=== PATIENT | female | born 1945 | race Caucasian/White ===

== ENCOUNTER 2019-06-24 12:47 | Outpatient (CLI) | payer MEDICARE, OTHER ==
--- NOTE | 2019-06-24 13:27 | DEXA Report ---
Reason: SCR FOR OSTEOPOROSIS, POSTMENOPAUSAL Procedure Date: 06/24/2019 Accession Number: [id number] / [id number] Procedure: DEX - Dexa Spine and/or Hip CPT Code: FULL RESULT: EXAM: Dexa Spine and/or Hip DATE: 06/24/2019 1:07 PM CLINICAL HISTORY: POSTMENOPAUSAL TECHNIQUE: Dual energy x-ray absorptiometry (DXA) was performed on a [employer] System. Regions measured are the AP Spine, femoral neck, and if needed forearm. COMPARISON: None. In accordance with the International Society for Clinical Densitometry (ISCD) guidelines, data from previous exams may be reanalyzed using current recommendations and techniques. This is done to allow a more accurate basis for comparison with the current study. FINDINGS: The data for the lumbar spine is as follows: BMD (g/cm/cm) T-SCORE Z-SCORE REGION L1 0.862 -2.2 -0.3 L2 0.852 -2.9 -1.0 L3 0.793 -3.4 -1.5 L4 0.816 -3.2 -1.3 TOTAL 0.828 -2.9 -1.0 NOTE: All evaluable vertebrae are used for classification The data for the hip is as follows: BMD (g/cm/cm) T-SCORE Z-SCORE REGION Neck 0.703 -2.4 -0.4 TOTAL 0.727 -2.2 -0.4 NOTE: The femoral neck or total proximal femur, whichever is lowest, is used for classification. IMPRESSION: THE WHO CLASSIFICATION BASED ON THE INTERNATIONAL REFERENCE STANDARD IS OSTEOPOROSIS, REFERENCE LUMBAR SPINE.. THE FRACTURE RISK IS HIGH. RECOMMENDATION: Patients with diagnosis of osteoporosis or osteopenia should have regular bone mineral density assessment. For those eligible for Medicare, routine testing is allowed once every 2 years. Testing frequency can be increased for patients who have rapidly progressing disease or for those who are receiving medical therapy to restore bone mass. COMMENT: World Health Organization (WHO) definitions for osteoporosis and osteopenia: NORMAL BMD: T-score at -1.0 or higher, fracture risk is low OSTEOPENIA BMD: T-score between -1.0 and -2.5, fracture risk is increased. OSTEOPOROSIS BMD: T-score at -2.5 or lower, fracture risk is high. National Osteoporosis Foundation recommends: 1. Obtain adequate dietary calcium (at least 1200 mg per day) and vitamin D (400-800 international units per day). 2. Participate, as appropriate, in regular weightbearing and muscle-strengthening exercise. 3. Avoid tobacco use and reduce alcohol and caffeine intake. 4. For more detailed information see the website at www.NOF.org.
== END 2019-06-24 12:48 | disposition home or self-care (01) ==
LOC: DI 12:47
PROVIDERS: ATTEND Family Medicine
DX: Z13.820 Encounter for screening for osteoporosis (principal); M81.0 Age-related osteoporosis without current pathological fracture; Z78.0 Asymptomatic menopausal state
CPT/HCPCS: 77080

== ENCOUNTER 2019-12-30 18:29 | Outpatient (CLI) | payer MEDICARE, OTHER | END 2019-12-30 18:30 | disposition home or self-care (01) | LOC: COV 18:29 | PROVIDERS: ATTEND Family Medicine | DX: R05 Cough (principal); M79.10 Myalgia, unspecified site; R53.83 Other fatigue; R68.83 Chills (without fever); J02.9 Acute pharyngitis, unspecified | CPT/HCPCS: 81599 ==

== ENCOUNTER 2020-12-05 08:00 | Outpatient (CLI) | payer MEDICARE, OTHER ==
--- NOTE | 2020-12-06 09:45 | XRAY Report ---
PROCEDURE: Chest 2 View X-Ray INDICATIONS: FEVER TECHNIQUE: 2 view(s) of the chest. COMPARISON: None. FINDINGS: Surgical changes and devices: None. Lungs and pleura: There is hyperaeration and flattening of the bilateral hemidiaphragms. Small left pleural effusion. Curvilinear opacities of the left lung base. No focal consolidations. No pneumothor ax. Mediastinum: Mediastinal contours are normal. Heart size is normal. Bones and chest wall: No suspicious bony abnormalities. Soft tissues appear unremarkable. IMPRESSION: Streaky left basilar opacities with small left pleural effusion. Findings may represent atelectasis v ersus early airspace disease. Findings compatible with chronic obstructive pulmonary physiology. Recommend follow-up chest radiograph 4-6 weeks after treatment to document resolution of findings. Reviewed by: Chucho Powell MD on 12/06/2020 9:43 AM PDT Approved by: Chucho Powell MD on 12/06/2020 9:43 AM PDT Station ID: [id number]
== END 2020-12-05 23:59 | disposition home or self-care (01) ==
LOC: DI.S 08:00
PROVIDERS: ATTEND Emergency Medicine
DX: J90 Pleural effusion, not elsewhere classified (principal); R91.8 Other nonspecific abnormal finding of lung field; R50.9 Fever, unspecified
CPT/HCPCS: 71046; U0004

== ENCOUNTER 2021-02-06 15:30 | Outpatient (CLI) | payer MEDICARE ==
--- NOTE | 2021-02-06 16:55 | DEXA Report ---
PROCEDURE: Dexa Spine and/or Hip INDICATIONS: POST MENOPAUSAL TECHNIQUE: Dual energy x-ray absorptiometry (DXA) was performed on a [employer] System. Regions measur ed are the AP Spine, femoral neck, and if needed forearm. COMPARISON: 06/24/2019 FINDINGS: Lumbar Spine: Bone Mineral Density 0.822 g/cm/cm,T score -3.0, osteoporosis, change from previous -0.7% Left Hip: Bone Mineral Density 0.696 g/cm/cm,T score -2.5, osteoporosis, change from previous -6.4%, significa nt Left Femoral Neck: Bone Mineral Density 0.658 g/cm/cm, T score -2.7, osteoporosis (T score greater or equal to -1.0: NORMAL) (T score from -1.1 to -2.4: OSTEOPENIA) (T score less than or equal to -2.5 to: OSTEOPOROSIS) Impression: 1. Significant interval decrease in left hip bone mineral density compared to the prior study. 2. Osteoporosis puts the patient at a high-risk of fracture. Patients with diagnosis of osteoporosis or osteopenia should have regular bone mineral density assess ment. For those eligible for Medicare, routine testing is allowed once every 2 years. Testing frequ ency can be increased for patients who have rapidly progressing disease or for those who are receivin g medical therapy to restore bone mass. Reviewed by: Nicolette Nguyen MD on 02/06/2021 4:53 PM PDT Approved by: Nicolette Nguyen MD on 02/06/2021 4:53 PM PDT Station ID: [id number]
== END 2021-02-06 15:31 | disposition home or self-care (01) ==
LOC: DI 15:30
PROVIDERS: ATTEND Registered Nurse
DX: M85.89 Other specified disorders of bone density and structure, multiple sites (principal)

== ENCOUNTER 2021-04-18 10:57 | Outpatient (CLI) | payer MEDICARE ==
[2021-04-18 14:46] LABS: BASOPHILS # (AUTO) 0.1 10^3/uL (0.0-0.1); BASOPHILS % (AUTO) 0.8 %; EOSINOPHILS # (AUTO) 0.1 10^3/uL (0.0-0.7); HCT - HEMATOCRIT 43.8 % (37.0-47.0); HGB - HEMOGLOBIN 13.8 g/dL (12.0-16.0); LYMPHOCYTES # (AUTO) 1.6 10^3/uL (1.5-3.5); LYMPHOCYTES % (AUTO) 23.7 %; MEAN CORPUSCULAR HEMOGLOBIN 32.2 pg (27.0-31.0); MEAN CORPUSCULAR HGB CONC 31.5 g/dL (32.0-36.0); MEAN CORPUSCULAR VOLUME 102.3 fL (81.0-99.0); MEAN PLATELET VOLUME 11.3 fL (7.9-10.8); MONOCYTES # (AUTO) 0.6 10^3/uL (0.0-1.0); MONOCYTES % (AUTO) 9.6 %; NEUTROPHILS # (AUTO) 4.2 10^3/uL (1.5-6.6); NEUTROPHILS % (AUTO) 63.7 %; PLT - PLATELET COUNT 205 10^3/uL (130-450); RED BLOOD COUNT 4.28 10^6/uL (4.20-5.40); RED CELL DISTRIBUTION WIDTH 13.5 % (12.0-15.0); WHITE BLOOD COUNT 6.5 x10^3/uL (4.8-10.8)
[2021-04-18 15:03] LABS: ALBUMIN 4.1 g/dL (3.2-5.5); ALBUMIN/GLOBULIN RATIO 1.3 (1.0-2.2); ALKALINE PHOSPHATASE 58 IU/L (42-121); ALT ALANINE AMINOTRANSFERASE 22 IU/L (10-60); AST ASPARTATE AMINOTRANSFERASE 24 IU/L (10-42); BILIRUBIN,TOTAL 0.7 mg/dL (0.2-1.0); BUN - BLOOD UREA NITROGEN 25 mg/dL (6-20); CARBON DIOXIDE - CO2 28 mmol/L (21-32); CHLORIDE 103 mmol/L (101-111); CHOL/HDL RATIO 2.7 (<4.4); CHOLESTEROL 272 mg/dL; CREATININE 0.8 mg/dL (0.4-1.0); GFR - MDRD 70 (>89); GLUCOSE 88 mg/dL (70-100); HDL CHOLESTEROL 99 mg/dL; LDL CHOLESTEROL,CALCULATED 155 mg/dL; LDL/HDL RATIO 1.6 (<4.4); POTASSIUM 4.2 mmol/L (3.5-5.0); SODIUM 142 mmol/L (135-145); TOTAL PROTEIN 7.3 g/dL (6.7-8.2); TRIGLYCERIDES 89 mg/dL; VLDL CHOLESTEROL 18 mg/dL
== END 2021-04-18 10:58 | disposition home or self-care (01) ==
LOC: LAB.S 10:57
PROVIDERS: ATTEND Physician Assistant
DX: Z13.220 Encounter for screening for lipoid disorders (principal); M81.0 Age-related osteoporosis without current pathological fracture; M79.7 Fibromyalgia
CPT/HCPCS: 36415; 80053; 80061; 82306; 83721; 85025

== ENCOUNTER 2021-05-31 08:00 | Outpatient (CLI) | payer MEDICARE ==
--- NOTE | 2021-05-31 19:34 | XRAY Report ---
PROCEDURE: Shoulder 3 View LT INDICATIONS: CONTUSION OF LEFT SHOULDER TECHNIQUE: 3 views of the shoulder were acquired. COMPARISON: None. FINDINGS: Bones: No fractures or dislocations. No suspicious bony lesions. Visualized ribs appear intact. S evere AC joint degeneration. Scattered subchondral sclerosis and spurring. Soft tissues: No suspicious soft tissue calcifications. IMPRESSION: No acute findings. If the patient's pain or other symptoms persist, consider further geovanni luation with MRI. Reviewed by: Dwight Oviedo MD on 05/31/2021 7:33 PM PDT Approved by: Dwight Oviedo MD on 05/31/2021 7:33 PM PDT Station ID: [id number]
== END 2021-05-31 23:59 | disposition home or self-care (01) ==
LOC: DI.S 08:00
PROVIDERS: ATTEND Physician Assistant Medical
DX: S40.012A Contusion of left shoulder, initial encounter (principal)